=== PATIENT | female | born 2005 | race Caucasian/White ===

== ENCOUNTER 2023-10-08 10:46 | Emergency (ER) | payer OTHER, SELFPAY ==
[2023-10-08 10:51] VITALS: BP 105/87; PULSE 102; RESP 16; TEMP 36.6; O2SAT 100
[2023-10-08 11:27] VITALS: BP 138/79; PULSE 93; RESP 18; O2SAT 100
--- NOTE | 2023-10-08 11:33 | ED.GENADULT ---
HPI - General Adult General Chief complaint: GI Bleed Stated complaint: RECTAL BLEEDING Time Seen by Provider: 10/08/23 11:21 History of Present Illness HPI narrative: 18-year-old female presenting to the emergency department for evaluation rectal bleeding. Patient states that she did have rectal insertion during sexual intercourse approximately 4 days ago. Patient states since then she does have sharp pain in her anus and does have some blood that is past when she has a hard bowel movement. Patient denies any current abdominal pain. Patient denies any prior history GI bleed. Review of Systems Review of Systems: All systems reviewed & are unremarkable except as noted in HPI and below Exam Narrative: APPEARANCE: Well appearing, no pain, no distress, well-nourished. HEAD: normocephalic, atraumatic. EYES: PERRLA/EOMI, conjunctivae clear. NOSE: Normal no drainage EARS:TMS clear with good light reflex. THROAT: Pharynx clear, no exudate. NECK: Supple. No adenopathy, no masses. RESPIRATORY: Airway patent, respirations nonlabored. Clear to auscultation bilaterally, no rales, rhonchi, wheezing. CARDIOVASCULAR: Regular rate and rhythm without murmurs rubs or gallops. ABDOMINAL: Soft, nontender, nondistended, normal bowel sounds Rectal exam: MUSCULOSKELETAL: Moves all extremities. Strength/ROM intact, No edema, No calf tenderness. NEURO: Alert. Cranial nerves II through XII intact. Good gait. Good coordination SKIN: Warm, dry. Normal Color Course Course Emergency Course: Patient is being treated as an anal fissure and patient was encouraged close follow-up Vital Signs Vital signs: Vital Signs Temperature 97.8 F 10/08/23 10:51 Pulse Rate 102 H 10/08/23 10:51 Respiratory Rate 16 10/08/23 10:51 Blood Pressure 105/87 10/08/23 10:51 Pulse Oximetry 100 10/08/23 10:51 Oxygen Delivery Room Air 10/08/23 10:51 Temperature 97.8 F 10/08/23 10:51 Pulse Rate 82 10/08/23 12:23 Respiratory Rate 17 10/08/23 12:23 Blood Pressure 132/74 10/08/23 12:23 Pulse Oximetry 100 10/08/23 12:23 Oxygen Delivery Room Air 10/08/23 10:51 Medical Decision Making MDM Narrative Medical decision making narrative: 18-year-old female presented emergency department for evaluation for rectal pain and rectal bleeding after a Rectal insertion. Patient is afebrile with no leukocytosis and a stable hemoglobin. No significant abnormalities on the patient's CMP. Patient's exam is consistent with an anal fissure. Patient was advised to take a stool softener and to have rectal rest. Patient was encouraged close follow-up with her primary care physician Differential Diagnosis Differential Diagnosis: Internal hemorrhoid, external hemorrhoid, anal fissure, diverticulitis, colitis Vital Signs Vital Signs: Vital Signs Temperature 97.8 F 10/08/23 10:51 Pulse Rate 102 H 10/08/23 10:51 Respiratory Rate 16 10/08/23 10:51 Blood Pressure 105/87 10/08/23 10:51 Pulse Oximetry 100 10/08/23 10:51 Oxygen Delivery Room Air 10/08/23 10:51 Temperature 97.8 F 10/08/23 10:51 Pulse Rate 82 10/08/23 12:23 Respiratory Rate 17 10/08/23 12:23 Blood Pressure 132/74 10/08/23 12:23 Pulse Oximetry 100 10/08/23 12:23 Oxygen Delivery Room Air 10/08/23 10:51 Lab Data Lab results reviewed: Yes I reviewed the patient's lab results. 10/08/23 11:40 10/08/23 11:40 Labs: Lab Results 10/08/23 Range/Units 11:40 WBC 6.5 (4.5-10.0) K/mm3 RBC 4.52 (4.2-5.4) M/mm3 Hgb 13.5 (12.0-15.0) g/dL Hct 40.7 (37.0-47.0) % MCV 90.0 (80-100) fl MCH 29.9 (26-34) pg MCHC 33.2 (32-36) g/dl RDW 12.3 (11.5-14.5) % Plt Count 236 (150-375) k/mm3 MPV 9.6 (7.4-10.4) fl Immature Gran % (Auto) 0.2 (0-0.5) % Neut % (Auto) 64.0 (45.5-73.1) % Lymph % (Auto) 27.8 (18.3-44.2) % [place] % (Auto) 6.5 (2.6-8.5) % Eos % (Auto) 0.9 (0-4.4) % Baso % (Auto) 0.
[2023-10-08 12:00] LABS: Basophils Percent Auto 0.6 % (0.2-1.2); Eosinophils Absolute Auto 0.1 K/mm3 (0-0.3); Eosinophils Percent Auto 0.9 % (0-4.4); Hematocrit 40.7 % (37.0-47.0); Hemoglobin 13.5 g/dL (12.0-15.0); Immature Granulocyte Absolute 0.01 K/mm3 (0.00-0.031); Immature Granulocyte Percent A 0.2 % (0-0.5); Lymphocytes Absolute Auto 1.81 K/mm3 (0.9-3.2); Lymphocytes Percent Auto 27.8 % (18.3-44.2); Mean Corpuscular HGB Conc 33.2 g/dl (32-36); Mean Corpuscular Hemoglobin 29.9 pg (26-34); Mean Platelet Volume 9.6 fl (7.4-10.4); Monocytes Absolute Auto 0.4 K/mm3 (0.1-0.6); Monocytes Percent Auto 6.5 % (2.6-8.5); Neutrophils Absolute Auto 4.2 K/mm3 (1.3-6.7); Platelet Count Result 236 k/mm3 (150-375); Red Blood Count 4.52 M/mm3 (4.2-5.4); Red Cell Distribution Width 12.3 % (11.5-14.5); White Blood Count 6.5 K/mm3 (4.5-10.0)
[2023-10-08 12:09] LABS: Alanine Aminotransferase 18 U/L (6-35); Alkaline Phosphatase 55 U/L (38-126); Anion Gap 8 mmol/L (4-12); Aspartate Amino Transferase 24 U/L (14-36); Bilirubin,Total 0.7 mg/dL (0.2-1.3); Blood Urea Nitrogen 21 mg/dL (7-17); Calcium 9.8 mg/dL (8.4-10.2); Carbon Dioxide 25 mmol/L (22-30); Chloride 108 mmol/L (98-107); Estimated CRCL calculation 138 ml/min; Estimated Glomerular Filt Rate > 60; Glucose 115 mg/dL (65-110); Potassium 3.7 mmol/L (3.4-5.0); Sodium 141 mmol/L (137-145)
[2023-10-08 12:11] LABS: Prothrombin Time 13.4 Seconds (11.1-14.7)
[2023-10-08 12:12] LABS: Partial Thromboplastin Time 27.5 Seconds (22.3-36.8)
[2023-10-08 12:23] VITALS: BP 132/74; PULSE 82; RESP 17; O2SAT 100
[2023-10-08 12:51] LABS: Lactic Acid Reflex 0.9 mmol/L (0.7-2.0)
== END 2023-10-08 12:25 | disposition home or self-care (01) ==
PROVIDERS: Emergency Provider Emergency Medicine
DX: K60.2 Anal fissure, unspecified (principal)
CPT/HCPCS: 36415; 80053; 83605; 85025; 85610; 85730; 99283

== ENCOUNTER 2023-12-30 22:00 | Emergency (ER) | payer OTHER, SELFPAY ==
[2023-12-30 22:04] VITALS: BP 120/94; PULSE 88; RESP 17; TEMP 36.5; O2SAT 100
[2023-12-30 22:14] LABS: Basophils Absolute Auto 0.1 K/mm3 (0.0-0.1); Basophils Percent Auto 0.5 % (0.2-1.2); Eosinophils Absolute Auto 0.1 K/mm3 (0-0.3); Eosinophils Percent Auto 0.9 % (0-4.4); Hematocrit 38.1 % (37.0-47.0); Hemoglobin 12.5 g/dL (12.0-15.0); Immature Granulocyte Absolute 0.03 K/mm3 (0.00-0.031); Immature Granulocyte Percent A 0.3 % (0-0.5); Lymphocytes Absolute Auto 3.14 K/mm3 (0.9-3.2); Lymphocytes Percent Auto 28.3 % (18.3-44.2); Mean Corpuscular HGB Conc 32.8 g/dl (32-36); Mean Corpuscular Hemoglobin 29.8 pg (26-34); Mean Corpuscular Volume 90.7 fl (80-100); Mean Platelet Volume 9.6 fl (7.4-10.4); Monocytes Absolute Auto 0.7 K/mm3 (0.1-0.6); Monocytes Percent Auto 6.2 % (2.6-8.5); Neutrophils Absolute Auto 7.1 K/mm3 (1.3-6.7); Neutrophils Percent Auto 63.8 % (45.5-73.1); Platelet Count Result 236 k/mm3 (150-375); Red Cell Distribution Width 12.9 % (11.5-14.5); White Blood Count 11.1 K/mm3 (4.5-10.0)
[2023-12-30 22:18] LABS: BEDSIDEPREGUCG Negative (Negative)
[2023-12-30 22:24] LABS: Add Urine Microscopic? YES; Appearance Urine Clear (Clear); Bacteria Urine None Seen /hpf; Bilirubin Urine Negative (Negative); Blood Urine Negative (Negative); Color Urine Yellow (Yellow); Glucose Urine UA Negative (Negative); Ketones Urine Trace mg/dL (Negative); Leukocyte Esterase Ur Trace LEU/UL (Negative); Nitrate Urine Negative (Negative); Non Pathogenic Casts 0-2; Protein Urine Negative (Negative); RBC Urine 0-2 /hpf (0-2); Specific Grav Ur 1.027 (1.001-1.035); Squamous Epithelial Cell Urine Moderate /hpf (Few)
[2023-12-30 22:25] LABS: Alanine Aminotransferase 21 U/L (6-35); Albumin Level 4.5 g/dL (3.5-5.1); Alkaline Phosphatase 51 U/L (38-126); Anion Gap 10 mmol/L (4-12); Aspartate Amino Transferase 23 U/L (14-36); Bilirubin,Total 0.5 mg/dL (0.2-1.3); Blood Urea Nitrogen 18 mg/dL (7-17); Calcium 9.3 mg/dL (8.4-10.2); Carbon Dioxide 24 mmol/L (22-30); Chloride 104 mmol/L (98-107); Estimated CRCL calculation 135 ml/min; Estimated Glomerular Filt Rate > 60; Glucose 107 mg/dL (65-110); Lipase 47 U/L (23-300); Potassium 3.9 mmol/L (3.4-5.0); Sodium 138 mmol/L (137-145)
--- NOTE | 2023-12-30 23:02 | ED.ABDPAIN ---
HPI - Abdominal Pain General Chief Complaint: Abdominal Pain Stated Complaint: abd pain Time Seen by Provider: 12/30/23 22:11 History of Present Illness HPI narrative: patient presents with 3 days of GI symptoms, starting with diarrhea, then having some periumbilical discomfort, and nausea. Only thing she had before this has started was spicy noodles. Related Data Allergies Allergy/AdvReac Type Severity Reaction Status Date / Time No Known Allergies Allergy Verified 12/30/23 23:02 Review of Systems Review of Systems: All systems reviewed & are unremarkable except as noted in HPI and below Exam Narrative: EXAMINATION OF ORGAN SYSTEMS/BODY AREAS: Constitutional: Vital signs per nursing GENERAL:[No acute distress, non-toxic appearing.] HEAD: Normal with no signs of head trauma. EYES: EOMI, conjunctiva normal ENT: Hearing grossly intact LUNGS: Nonlabored breathing. HEART: [Regular rate and rhythm] ABD: [Soft], no significant [tenderness to palpation] other than some very mild discomfort to the periumbilical abdomen, no RLQ tenderness at all EXT: Normal range of motion SKIN: [No rashes or lesions.] NEURO: [Alert and oriented x 3. No gross focal sensory or strength deficits.] PSYCH: Normal affect Course Vital Signs Vital signs: Vital Signs Temperature 97.7 F 12/30/23 22:04 Pulse Rate 88 12/30/23 22:04 Respiratory Rate 17 12/30/23 22:04 Blood Pressure 120/94 H 12/30/23 22:04 Pulse Oximetry 100 12/30/23 22:04 Oxygen Delivery Room Air 12/30/23 22:04 Temperature 98.1 F 12/31/23 00:52 Pulse Rate 82 12/31/23 00:52 Respiratory Rate 15 12/31/23 00:52 Blood Pressure 110/59 L 12/31/23 00:52 Pulse Oximetry 97 12/31/23 00:52 Oxygen Delivery Room Air 12/30/23 22:04 MDM - Abdominal Pain MDM Narrative Medical decision making narrative: Electronic medical record was reviewed. Patient presented to the ED with complaint of [abdominal pain and vomiting]. Vitals [were within acceptable limits]. Physical exam revealed [ soft abdomen with very minimal tenderness to palpation in periumbilical abdomen]. Based on the patient's history and physical exam, my differential includes but is not limited to [gastritis, gastroenteritis, cholecystitis, pancreatitis, appendicitis]. [IV access was established by nursing staff. Patient was given zofran, Protonix, IV fluids]. CBC, BMP, lipase, LFTs, bilirubin and alk phos were obtained. Labs were pertinent for very minimally elevated WBCs. On reevaluation, the patient states that they are feeling better. There were no witnessed episodes of vomiting in the emergency department. They are not complaining of any new abdominal pain. Repeat examination did not show any significant guarding or rebound. No new tenderness. At this time I do not feel there is any further emergent treatment to be provided. The patient was given strict return precautions, if they are to develop any worsening abdominal pain, vomiting, or blood in the vomit they are to return to the emergency department immediately. Patient verbally acknowledges understanding these directions. [The patient was informed of the above diagnostic test findings.] No further workup is necessary at this time. They will be discharged home [with prescriptions]. They were advised to follow-up with [their PCP] in 2 days. The patient feels that this is appropriate medical decision making and verbalizes an understanding of the discharge instructions. Lab Data 12/30/23 22:09 12/30/23 22:09 Labs: Lab Results 12/30/23 12/30/23 12/30/23 Range/Units 22:09 22:10 22:16 WBC 11.1 H (4.5-10.0) K/mm3 RBC 4.20 (4.2-5.4) M/mm3 Hgb 12.5 (12.0-15.0) g/dL Hct 38.1 (37.0-47.0) % MCV 90.7 (80-100) fl MCH 29.8 (26-34) pg MCHC 32.8 (32-36) g/dl RDW 12.9 (11.5-14.5) % Plt Count 236 (150-375) k/mm3 MPV 9.6 (7.4-10.4) fl Immature Gran % (Auto) 0.
[2023-12-30] MEDS: ONDANSETRON INJ 4 MG/2 ML VIAL IV PUSH (23:03)
[2023-12-30] MEDS: LACTATED RINGERS 1,000 ML 999 ML IV CONT (23:03)
[2023-12-30] MEDS: PANTOPRAZOLE SODIUM IV 40 MG VIAL IV PUSH (23:03)
[2023-12-30] MEDS: Please add drug allergy info to patient profile. 1 EACH XX (23:03)
[2023-12-31] MEDS: KETOROLAC 30 MG/ML VIAL (*BKC) 15 MG IM (00:07)
[2023-12-31 00:52] VITALS: BP 110/59; PULSE 82; RESP 15; TEMP 36.7; O2SAT 97
== END 2023-12-31 00:54 | disposition home or self-care (01) ==
PROVIDERS: Emergency Provider Emergency Medicine
DX: R10.33 Periumbilical pain (principal); R11.2 Nausea with vomiting, unspecified
CPT/HCPCS: 36415; 80053; 81001; 81025; 83690; 85025; 87086; 96361; 96372; 96374; 96375; 99284; J1885; J2405; J2470; J7120

== ENCOUNTER 2024-07-13 10:59 | Outpatient (CLI) | payer OTHER, SELFPAY ==
--- NOTE | ~2024-07-13 | US_ITS ---
EXAMINATION: US OB <=14 wk fetus w TV DATE: 07/13/2024 11:58 INDICATION: Amenorrhea TECHNIQUE: Real-time pelvic ultrasound utilizing transabdominal probe was performed. The alan gimenez radiologist was not present for the study. COMPARISON: None. FINDINGS: The uterus measures 10.4 x 6.5 x 7.8 cm. There is an intrauterine gestational sac. A yolk sac and fe diego pole are identified. The crown rump length measures 4.0 cm, which correlates with an estimated ge stational age of 10 weeks and 6 days. heart motion is identified measuring 152 beats per minute (bpm) by M-mode Doppler. The right ovary measures 3.6 x 2.9 x 1.4 cm. Vascular flow with arterial and venous waveforms identif ied in the right ovary on color Doppler. The left ovary is not visualized. There is no free fluid in the pelvis. IMPRESSION: 1. Single living fetus with heart rate is 152 bpm. 2. Gestational age by ultrasound of 10 weeks 6 day(s) +/- 7 day(s) with ultrasound estimated date of delivery (LAURIE) of 02/02/2025. Reviewed, dictated and finalized at location B. IMPRESSION: 1. Single living fetus with heart rate is 152 bpm. 2. Gestational age by ultrasound of 10 weeks 6 day(s) +/- 7 day(s) with ultras ound estimated date of delivery (LAURIE) of 02/02/2025.
--- OUTSIDE RECORDS SUMMARY | 2024-07-13 12:03 | XMS_ITS | Referral Summary ---
Author Organization [facility] Address [address] [place] [address] Care Team Providers Care Subway Train Operator Name Role Phone Nel Field MD Unavailable [phone] Josee Henson PT Unavailable Unavailab Mila Shelton MANAGER OF CORPORATE COMMUNICATIONS Unavailable [phone] Isatu Tariq PT Unavailable Unavailable Anita Nam CHANGE MANAGEMENT MANAGER Unavailable Unavailable Chris Tadeo Unavailable Unavailable Nel Field MD Primary Care Provider [phone] Allergies Active Allergy Reactions Criticality Noted Date Comments Chlorhexidine Rash Medium 07/09/2021 Mild skin irritation after CHG scrub preop Medications cetirizine (ZyrTEC) 1 mg/mL syrup Take 10 mg by mouth daily Active SUMAtriptan (IMITREX) 50 mg tablet Take 1 tablet by mouth daily Active albuterol HFA (PROVENTIL HFA,VENTOLIN HFA,PROAIR HFA) 90 mcg/actuation inhaler Inhale 2 puffs every 4 (four) hours as needed for wheezing or shortness of breath Active gabapentin (NEURONTIN) 100 mg capsule TAKE ONE CAPSULE BY MOUTH AT BEDTIME FOR 5 DAYS, THEN TAKE TWO CAPSULES BY MOUTH EVERY NIGHT AT BEDTIME 60 capsule 3 0 Active Additional Information Patient not taking.Reported on 06/14/2022 fluticasone propionate (FLONASE) 50 mcg/actuation nasal spray Administer 2 sprays into each nostril daily 1 Active ibuprofen (ADVIL,MOTRIN) 600 mg tablet Take 1 tablet (600 mg total) by mouth every 6 (six) hours as needed for pain 30 tablet 2 Active Additional Information Patient not taking.Reported on 08/27/2021 acetaminophen (TYLENOL) 325 mg tabletIndicatio ns:Pain Take 2 tablets (650 mg total) by mouth every 6 (six) hours as needed for pain 60 tablet 2 Active Additional Information Patient not taking.Reported on 08/27/2021 docusate sodium (COLACE) 100 mg capsuleIndicati ons:constipatio n Take 1 capsule (100 mg total) by mouth 2 (two) times a day 28 capsule 2 Active Additional Information Patient not taking.Reported on 08/27/2021 senna (SENOKOT) 8.6 mg tablet Take 1 tablet by mouth nightly 14 tablet 2 Active Additional Information Patient not taking.Reported on 08/27/2021 cyclobenzaprine (FLEXERIL) 5 mg tablet Take 1 tablet (5 mg total) by mouth every 8 (eight) hours as needed for muscle spasms 21 tablet 2 Active Additional Information Patient not taking.Reported on 08/27/2021 oxyCODONE (ROXICODONE) 5 mg immediate release tabletIndicatio ns:Pain Take 1 tablet (5 mg total) by mouth every 4 (four) hours as needed for pain 18 tablet 2 Active Additional Information Patient not taking.Reported on 08/27/2021 cephalexin (KEFLEX) 500 mg capsule 1000 mg am (2 cap), 500 mg midday (1 cap), 500 mg pm (1 cap) 10 days supply 40 capsule 2 Active Additional Information Patient not taking.Reported on 08/27/2021 Aurovela Fe 1-20, 28, 1 mg-20 mcg (21)/75 mg (7) per tablet Take 1 tablet by mouth daily 2 Active Active Problems Problem Noted Date Diagnosed Date Atopic dermatitis 11/12/2020 Depressive disorder 11/12/2020 Obesity 11/12/2020 Vitamin D deficiency 11/12/2020 Bulging of intervertebral disc between L4 and L5 12/26/2018 Low back pain without sciatica 05/24/2018 Perennial allergic rhinitis 10/14/2017 Pain of right scapula 08/12/2017 Patellofemoral pain syndrome 04/20/2017 Mild intermittent asthma 12/15/2016 Resolved Problems Problem Noted Date Diagnosed Date Resolved Date Contusion of right wrist 11/30/2012 Pain of hand 11/30/2012 07/01/2021 Immunizations Immunization Administration Dates Next Due DTaP 01/22/2008, 5,03/27/2004,02/06,2003 H1N1 All Forms 04/08/2009 HPV, Quadrivalent 10/15/2014 HPV9 08/11/2015,01/23/2015 Hep A, Ped Unspecified 11/02/2005 Hep A, Pediatric 12/25/2009,11/03/2006, 6 Hep B / HiB 03/27/2004 Hep B, Adolescent or Pediatric 2003 Hep B, Unspecified 03/27/2004,2003, 004 HiB 10/21/2004, 4,02/07/2004,12/12 IPV 01/22/2008, 5,02/07/2004,12/12 Influenza, Quadrivalent, Spl it, Preservative Free, Intramuscular 03/19/2021,04/01/2020,01/24/2019,01/27,02/17/2017,01/06/2016,01/23/2015 Influenza, Split 01/22/2008, 6,04/24/2004,03/27 Influenza, Unspecified 03/29/2013,03/02/2011, MMR 01/22/2008,10/21/2004 Meningococcal B, OMV (Bexsero) 09/30/2020,2019 Meningococcal Conjugate (Menveo) 10/15/2014 Meningococcal MCV4P (Menactra) 04/01/2020 Pneumococcal Conjugate 7-Valent 10/22/19 05,03/27/2004,02/07/2004,12/12 Tdap 10/22/2013 Varicella 01/22/2008,10/21/2004 Social History Tobacco Use Types Packs/Day Years Used Date Smoking Tobacco: Never Smokeless Tobacco: Never Alcohol Use Standard Drinks/Week Comments Never 0 (1 standard drink = 0.6 oz pur e alcohol) AUDIT-C Answer Date Recorded Frequency of Alcohol Consumption Never 01/31/2019 Average Number of Drinks Not on file 019 Frequency of Binge Drinking Not on file 01/16 Comments No Sex and Gender Information Value Date Recorded Sex Assigned at Not on file Legal Sex Female 2:47 AM FRUIT AND VEGETABLE CLASSER Gender Identity Not on file Sexual Orientation Not on file Last Filed Vital Signs Vital Sign Reading Time Taken Comments Blood Pressure 103/56 07/10/2021 8:41 AM CDT Pulse 64 07/10/2021 8:41 AM CDT Temperature 36.4 C (97.5 F) 07/10/2021 8:41 AM CDT Respiratory Rate 20 07/10/2021 8:41 AM CDT Oxygen Saturation 97% 07/10/2021 8:41 AM CDT Inhaled Oxygen Concentration - - Weight 94.4 kg (208 lb 3.2 oz) 06/14/2022 2:06 P M FRUIT AND VEGETABLE CLASSER Height 170.2 cm (5' 7 ) 06/14/2022 2:06 PM FRUIT AND VEGETABLE CLASSER Body Mass Index 32.61 06/14/2022 2:06 PM FRUIT AND VEGETABLE CLASSER Plan of Treatment Not on file Insurance [employer]ULT[employer] CARE OTHER IDPA [facility] CARE OTHER IDPA M[employer] CARE OTHER [employer] CARE OTHER IDPA Advance Directives For more information, please contact: [phone] * Full Code (Latest Code Status on File) Date Activated Date Inactivated Comments 07/09/2021 4:20 PM 07/10/2021 5:06 PM Care Teams Subway Train Operator Relationship Specialty Start Date End Date Nel Field MD [address] [place] [address] PCP - General Pediatrics 05/24/18 Nel Field MD [address] [place] [address] Pediatrics 03/05/17 Josee Henson, PT Physical Therapist Physical Therapy 03/24/17 Mila Olivera, MALLORY [address] [address] Nurse Practitioner Orthopedic Surgery 04/22/17 Isatu Tariq PT Physical Therapist Physical Therapy 05/06/17 Anita Nam, YUMIKO Cardroom Drawing Runner Physical Therapy 05/19/17 Chris Tadeo Cardroom Drawing Runner Physical Therapy 05/31/17
--- OUTSIDE RECORDS SUMMARY | 2024-07-13 12:03 | XMS_ITS | Clinical Summary ---
Author Organization [facility] Address [address] [place] [address] Care Team Providers Care Pediatric Medical Assistant Name Role Phone Nel Field MD Unavailable [phone] Josee Henson PT Unavailable Unavailab Mila Shelton EARLY [employer] PSYCHOLOGIST Unavailable [phone] Isatu Tariq PT Unavailable Unavailable Anita Nam ARMHOLE PRESSER Unavailable Unavailable Chris Tadeo Unavailable Unavailable Nel Field MD Primary Care Provider Allergies Active Allergy Reactions Criticality Noted Date [...] 7-Valent 10/22/19 05,03/27/2004,02/07/2004,12/12 Tdap 10/22/2013 Varicella 01/22/2008,10/21/2004 Surgical History Surgery Date Site/Laterality Comments FL UPPER GI AIR CONTRAST W KUB 03/05/2019 Bilateral FL UPPER GI AIR CONTRAST W KUB 06/18/2019 Bilateral TONSILLECTOMY AND ADENOIDECTOMY 04/18/2008 - 04/17/2009 Medical History Medical History Date Comments Pain in right knee Bilateral kne e pain - (Added by TW Conv) Asthma Family History Medical History Relation Name Comments No Known Problems Father Arthritis Mother Hypertension Mother Relation Name Status Comments Father Alive Mother Alive Social History Tobacco Use Types Packs/Day Years [...] on file Legal Sex Female 2:47 AM LIFE SKILLS SPECIALIST Gender Identity Not on file Sexual Orientation Not on file Obstetrics History Last Filed Vital Signs Vital Sign Reading Time Taken Comments Blood Pressure 103/56 07/10/2021 8:41 AM CDT Pulse 64 07/10/2021 8:41 AM CDT Temperature 36.4 C (97.5 F) 07/10/2021 8:41 AM CDT Respiratory Rate 20 07/10/2021 8:41 AM CDT Oxygen Saturation 97% 07/10/2021 8:41 AM CDT Inhaled Oxygen Concentration - - Weight 94.4 kg (208 lb 3.2 oz) 06/14/2022 2:06 P M LIFE SKILLS SPECIALIST Height 170.2 cm (5' 7 ) 06/14/2022 2:06 PM LIFE SKILLS SPECIALIST Body Mass Index 32.61 06/14/2022 2:06 PM LIFE SKILLS SPECIALIST Plan of Treatment Health Maintenance Due Date Last Done Comments Depression Screening 2003 Hepatitis C Screening 2003 Pneumococcal vaccine <65 (1 of 1 - PPSV23) 09/25/2009 10/21/2004, 03/27/2004, 02/07/2004, Additional history exists Regular Well Visit/Exam 18-64 09/25/2021 DTaP/Tdap/Td Vaccine (7 - Td or Tdap) 10/23/2023 10/22/2013, 01/22/2008, 01/26/2005, Additional history exists Covid-19 Vaccine (2023-2 5 season) 2023 01/04/2021, 12/11/2020 Influenza Vaccine (#1) 2023 , 04/01/2020, 01/24/2019, Additional history exists Hepatitis B Screening Completed 03/27/2004 , 03/27/2004, 2003, Additional history exists Varicella Vaccines Completed 01/22/2008, 10/21/2004 HPV Vaccines Completed 08/11/2015, 11/2014, 10/15/2014 Meningococcal Vaccine Completed 04/01/2020, 015 Meningococcal B Vaccine Completed 09/30/2020, 04/01 Insurance MULTIPLAN CARE OTHER [facility] [place] [address] [place] [address] CARE OTHER IDPA [facility] C[facility] OTHER A[employer] CARE OTHER IDPA Advance Directives For more information, please contact: [phone] * Full Code (Latest Code Status on File) Date Activated Date Inactivated Comments 07/09/2021 4:20 PM 07/10/2021 5:06 PM Care Teams Pediatric Medical Assistant Relationship Specialty Start Date End Date Nel Field MD [address] [place] [address] PCP - General Pediatrics 05/24/18 Nel Field MD [address] [place] [address] Pediatrics 03/05/17 Josee Henson, PT Physical Therapist Physical Therapy 03/24/17 Mila Olivera, EARLY INTERVENTION SCHOOL PSYCHOLOGIST [address] [address] Nurse Practitioner Orthopedic Surgery 04/22/17 Isatu Tariq, PT Physical Therapist Physical Therapy 05/06/17 Anita Nam, ARMHOLE PRESSER Washtub Worker Physical Therapy 05/19/17 Chris Tadeo Washtub Worker Physical Therapy 05/31/17
--- OUTSIDE RECORDS SUMMARY | 2024-07-13 12:05 | XMS_ITS | Clinical Summary ---
Author Organization [facility] Address [address] [place] [address] Care Team Providers Care Exhaust Emissions Automotive Technician Name Role Phone Lisa Figueroa Primary Care Provider [phone] Allergies Active Allergy Reactions Criticality Noted Date Comments Chlorhexidine Rash Medium 07/09/2021 Mild skin irritation after CHG scrub preop Bupropion Anxiety Low 04/02/2024 Increased anxiety and thoughts of Medications albuterol sulfate HFA 108 (90 Base) MCG/ACT inhaler Inhale 2 puffs into the lungs every 6 (six) hours as needed. As needed Active SUMAtriptan (IMITREX) 50 MG tablet Take 1 tablet (50 mg total) by mouth daily as needed for Migraine. Active sertraline (ZOLOFT) 25 MG tablet Take 1 tablet (25 mg total) by mouth nightly. Active Active Problems Problem Noted Date Diagnosed Date Seasonal allergic rhinitis, unspecified trigger 02/06/2024 Overview (03/05/2024): Patient reports she is taking cetirizine daily as needed. Assessment & Plan (03/05/2024 10:18 AM LEAKAGE TESTER): She is counseled that she may benefit from using Flonase/fluticasone nasal spray 1 spray in each nostril daily. She is counseled how to use this nasal spray medication appropriately. Daytime somnolence 02/06/2024 Overview (03/05/2024): Patient completed overnight polysomnogram with WatchPAT. Assessment & Plan (03/05/2024 10:25 AM LEAKAGE TESTER): Sleep study results have not resulted. Will contact patient when they result. 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 Currently on sertraline 25mg nightly. Has been increased to sertraline 50mg nightly however patient reports she hasn't picked up new prescription yet. Assessment & Plan (04/02/2024 5:39 PM LEAKAGE TESTER): Counseled patient that I am more than happy to take over prescribing this medication for her if she had any point does not want to use this dimitry. Chronic bilateral low back pain without sciatica 01/16/2024 Overview (04/02/2024): She reports she has been going to physical therapy. She reports some improvement since starting physical therapy with her back pain especially with cupping on her back. Assessment & Plan (04/02/2024 5:41 PM LEAKAGE TESTER): Continue physical therapy at this time. Assessment & Plan (03/05/2024 10:20 AM LEAKAGE TESTER): New referral is placed to patient's current physical therapy location [facility]. Class 1 obesity without seri ous comorbidity with body mass index (BMI) of 34.0 to 34.9 in adult, unspecified obesity type 01/16/2024 Assessment & Plan (03/05/2024 10:27 AM LEAKAGE TESTER): Discussed with patient the importance of maintaining a healthy weight and we can discuss medication options further at next appointment if she is interested. Migraine without aura and wi thout status migrainosus, not intractable 01/16/2024 Overview (04/02/2024): She reports she takes her sumatriptan as needed. She reports last time she took a dose approximately one month or two. She denies having to take it more frequently than previously. Assessment & Plan (03/05/2024 10:17 AM LEAKAGE TESTER): Continue sumatriptan as needed. If migraine headaches become more frequent or more intense, patient is instructed to notify myself so we can adjust medication therapy. Marijuana use 01/16/2024 Snoring 01/16/2024 Overview (03/05/2024): Patient completed overnight polysomnogram with WatchPAT. Assessment & Plan (04/02/2024 5:41 PM LEAKAGE TESTER): Snoring was noted on WatchPAT sleep study however no evidence of obstructive sleep apnea was appreciated. Assessment & Plan (03/05/2024 10:23 AM LEAKAGE TESTER): Sleep study results have not resulted. Will contact patient when they result. Vitamin D insufficiency 01/16/2024 Overview (04/02/2024): Component Ref Range & Units 01/16/24 1034 VITAMIN D 25 HYDROXY TOTAL S/P/B 30 - 100 NG/ML 20.0 Low Assessment & Plan (04/02/2024 5:40 PM LEAKAGE TESTER): Counseled patient to take vitamin with at least vitamin D3 1000 to 2000 IU daily Resolved Problems Problem Noted Date Diagnosed Date Resolved Date Need for immunization against influenza 03/05/2024 04/02/2024 Overview (03/05/2024): Patient is due for influenza vaccine. She reports she has not had influenza vaccine in a few years. She denies previous adverse reaction to influenza vaccine. Need for diphtheria-tetanus- pertussis (Tdap) vaccine 03/05/2024 04/02/2024 Overview (03/05/2024): Patient is due for Tdap booster. She denies any previous adverse reaction to vaccine. Atopic dermatitis 11/12/2020 04/02/2024 Bulging of intervertebral di sc between L4 and L5 12/26/2018 04/02/2024 Pain of right scapula 08/12/20172023 Patellofemoral pain syndrome 04/20/2017 04/02/2024 Encounters Date Type Department Care Team Description 05/22/2024 Scan [facility] INFO SRVCS Scanned, [facility] 04/16/2024 Scan [facility] HE[facility] INFO SRVCS Scanned, [facility] from Last 3 Months Immunizations Name Administration Dates Next Due Dtap (Acel-Immune) 01/22/2008, 5,03/27/2004,01/17,2003 Fluzone (IIV3, Trivalent, 0. 5 ML Prefilled Syringe) 03/05/2024 H1N1 2009 Influenza Vaccine 04/08/2009 HPV GARDASIL 9-VALENT 08/11/2015,01/23/2015 HPV4 (Gardasil) 10/15/2014 Hepatitis A (Generic) 11/02/2005,11/02/2005 Hepatitis A (Havrix 720 [address].U) 12/25/2009, 007,11/02/2005 Hepatitis B 03/27/2004,2003 Hepatitis B Pediatric 2003 Hib (Generic) 10/21/2004, 4,02/07/2004,11/17 Hib-Hepatitis B (Comvax) 03/27/2004 Influenza (Generic) 03/29/2013, 1,04/08/2009,09/2007,04/04/2007,02/17/2006,04/24/19 05,03/27/2004 Influenza Adult (Generic) 03/19/2021,,01/24/2019,01/16,02/17/2017,01/06/2016,01/24/20 15 MENINGOCOCCAL A C Y&W-135 oligosaccharide (MENVEO) 10/15/2014 MMR (MMRII) 01/22/2008,10/21/2004 Meningcoccal Group B (Bexser o)(aka Meningitis) 09/30/2020,04/01/2020 Meningococcal (Menactra) 04/01/2020 PFIZER COVID-19 (ORIGINAL FO RMULATION, PURPLE CAP) mRNA, LNP-S, PF, 30 MCG/0.3 ML DOSE 01/04/2021,12/11/2020 Pneumococcal (Prevnar 7) 10/21/2004,03/18,02/07/2004,11/17 Polio IPV (Ipol) 01/22/2008, 5,02/07/2004,11/17 Tdap (Adacel) 03/05/2024 Tdap (Generic) 10/22/2013 Varicella (Varivax) 01/22/2008,10/21/2004 Family History Medical History Relation Comments Prediabetes Father No Known Problems Maternal Grandfather Diabetes Maternal Grandmother Uses insuli n Liver Disease Maternal Grandmother Bipolar Mother Cancer Paternal Grandfather Skin No Known Problems Sister 2 years older Relation Status Comments Father Alive Maternal Grandfather Maternal Grandmother Alive Mother Alive Paternal Grandfather Alive Paternal Grandmother Alive Sister Alive Social History Tobacco Use Types Packs/Day Years Used Date Smoking Tobacco: Never Passive Smoke Exposure: Past Smokeless Tobacco: Never Tobacco Cessation:Counseling Given: Yes Alcohol Use Standard Drinks/Week Comments Yes 0 (1 standard drink = 0.6 oz pure alcohol) Socially- holidays - 3 shots at a time PHQ-2 Answer Date Recorded Patient Health Questionnaire-2 Score 2 01/16/2024 Comments No Sex and Gender Information Value Date Recorded Sex Assigned at Not on file Legal Sex Female 3:40 PM CDT Gender Identity Not on file Sexual Orientation Not on file Last Filed Vital Signs Vital Sign Reading Time Taken Comments Blood Pressure 112/71 04/02/2024 4:05 PM LEAKAGE TESTER Pulse 77 04/02/2024 4:05 PM LEAKAGE TESTER Temperature 36.8 C (98.2 F) 04/02/2024 4:05 PM LEAKAGE TESTER Respiratory Rate 16 04/02/2024 4:05 PM LEAKAGE TESTER Oxygen Saturation 96% 04/02/2024 4:05 PM LEAKAGE TESTER Inhaled Oxygen Concentration - - Weight 93.9 kg (207 lb) 04/02/2024 4:05 PM LEAKAGE TESTER Height 170.2 cm (5' 7 ) 04/02/2024 4:05 PM LEAKAGE TESTER Body Mass Index 32.42 04/02/2024 4:05 PM LEAKAGE TESTER Plan of Treatment Upcoming Encounters Date Type Department Care Team (Late st Contact Info) Description 10/01/2024 3:40 PM CDT Office Visit [facility] [place] [address] [place] [address] Lisa Figueroa, [address] [place] [address] Health Maintenance Due Date Last Done Comments Annual Physical 09/25/2006 Pneumococcal Vaccine: Pediatrics (0 to 5 Years) and At-Risk Patients (6 to 64 Years) (1 of 2 - PCV) 09/25/2009 10/21/2004, 03/27/2004, 02/07/2004, Additional history exists Chlamydia Screening Females ages 16-24 2019 Hepatitis C 09/25/2021 COVID-19 Vaccine ( season) 2023 01/04/2021, 12/11/2020 PHQ-2 (Physician [facility] [place]) 04/18/2024 01/16/2024 DTaP, Tdap and Td Vaccines (8 - Td or Tdap) 03/05/2034 03/05/2024, 10/22/2013, 01/22/2008, Additional history exists Hepatitis B Vaccines Completed 03/27/2004, 03/27/2004, 2003, Additional history exists HPV Vaccines Completed 08/11/2015, 11/2014, 10/15/2014 Meningococcal Vaccine Completed 04/01/2020, 015 Meningococcal B Vaccine Completed 09/30/2020, 04/01 Influenza Adult Completed 03/05/2024, 05/2020, 04/01/2020, Additional history exists RSV Immunizations Under 20 Months Aged Out No longer eligible based on patient's age to complete this topic Insurance [employer] Care Teams Exhaust Emissions Automotive Technician Relationship Specialty Start Date End Date Lisa Figueroa DO [address] [place], [place] [id number] PCP - General FAMILY PRACTICE 01/10/24
== END 2024-07-13 11:00 | disposition home or self-care (01) ==
PROVIDERS: Visit Provider Student in an Organized Health Care Education/Training Program
DX: N91.2 Amenorrhea, unspecified (principal); Z33.1 Pregnant state, incidental
CPT/HCPCS: 76801; 76817

== ENCOUNTER 2025-01-21 14:56 | Outpatient (CLI) | payer OTHER, SELFPAY ==
[2025-01-21] VITALS (8 sets, daily range): BP systolic 125–156; BP diastolic 60–86; PULSE 91–100
--- NOTE | ~2025-01-21 | US_ITS ---
EXAMINATION: US OB BPP wo non-stress DATE: 01/21/2025 17:24 INDICATION: arrhythmia. Blood pressure TECHNIQUE: Real-time pelvic ultrasound was performed. The interpreting radiologist was not present for the study. COMPARISON: None. FINDINGS: cardiac activity and movement are demonstrated. heart rate is 144 beats per minute (bpm). Biophysical profile performed by the technologist: breathing (30 sec sustained breathing in 30 minutes): 2 out of 2 movement (3 gross body movements in 30 minutes): 2 out of 2 tone (one episode of kkzcsay-oqxeugqmm-clyhqxs limb movement): 2 out of 2 Amniotic fluid pocket (2 cm): 2 out of 2 Total score: 8 out of 8 IMPRESSION: 1. Single living intrauterine with heart rate of [144 bpm. 2. Biophysical profile 8 out of 8. Reviewed, dictated and finalized at location Q.
[2025-01-21 15:29] LABS: Hematocrit 35.2 % (37.0-47.0); Hemoglobin 11.5 g/dL (12.0-15.0); Immature Granulocyte Percent A 1.1 % (0-0.5); Lymphocytes Absolute Auto 2.07 K/mm3 (0.9-3.2); Mean Corpuscular HGB Conc 32.7 g/dl (32-36); Mean Corpuscular Hemoglobin 26.4 pg (26-34); Mean Corpuscular Volume 80.7 fl (80-100); Nucleated Red Blood Cells Absolute Auto 0.000 K/mm3 (0.0-0.012); Nucleated Red Blood Cells Perc 0.0 % (0.0-0.2); Platelet Count Result 357 k/mm3 (150-375); Red Blood Count 4.36 M/mm3 (4.2-5.4); White Blood Count 15.2 K/mm3 (4.5-10.0)
[2025-01-21 15:41] LABS: Alanine Aminotransferase 39 U/L (6-35); Albumin Level 3.3 g/dL (3.5-5.1); Alkaline Phosphatase 170 U/L (38-126); Anion Gap 9 mmol/L (4-12); Aspartate Amino Transferase 36 U/L (14-36); Bilirubin,Total 0.2 mg/dL (0.2-1.3); Blood Urea Nitrogen 18 mg/dL (7-17); Calcium 9.3 mg/dL (8.4-10.2); Carbon Dioxide 19 mmol/L (22-30); Chloride 105 mmol/L (98-107); Estimated Glomerular Filt Rate > 60; Glucose 112 mg/dL (65-110); Potassium 4.0 mmol/L (3.4-5.0); Sodium 133 mmol/L (137-145); Total Protein 6.4 g/dL (6.3-8.2); Uric Acid 5.1 mg/dL (2.5-7.5)
--- OUTSIDE RECORDS SUMMARY | 2025-01-21 15:42 | XMS_ITS | Clinical Summary ---
Author Organization [facility] Address [address] [place] [address] Care Team Providers Care Faith Healer Name Role Phone Nel Field MD Unavailable [phone] Josee Henson PT Unavailable Unavailab Mila Shelton HEALTH COMMUNICATIONS SPECIALIST Unavailable [phone] Isatu Tariq PT Unavailable Unavailable Anita Nam PHP WEBSITE DEVELOPER Unavailable Unavailable Chris Tadeo Unavailable Unavailable Nel Field MD Primary Care Provider [phone] Allergies Active Allergy Reactions Criticality Noted Date [...] on file Legal Sex Female 2:47 AM ENTRY EXAMINER Gender Identity Not on file Sexual Orientation [...] lb 3.2 oz) 06/14/2022 2:06 P M ENTRY EXAMINER Height 170.2 cm (5' 7) 06/14/2022 2:06 PM ENTRY EXAMINER Body Mass Index 32.61 06/14/2022 2:06 PM ENTRY EXAMINER Plan of Treatment Health Maintenance Due Date Last Done Comments Cervical Cancer Screening 2003 Depression Screening 2003 Hepatitis C Screening 2003 Pneumococcal vaccine <65 (1 of 1 - PPSV23, PCV20, or PCV21) 09/25/2009 10/21/2004, 03/27/2004, 02/07/2004, Additional history exists Regular Well Visit/Exam 18-64 09/25/2021 DTaP/Tdap/Td Vaccine (7 - Td or Tdap) 10/23/2023 10/22/2013, 01/22/2008, 01/26/2005, Additional history exists Covid-19 Vaccine (3 - 5-2 6 season) 2024 01/04/2021, 12/11/2020 Influenza Vaccine (#1) 2024 , 04/01/2020, 01/24/2019, Additional history exists Hepatitis B Screening Completed 03/27/2004 , 03/27/2004, 2003, Additional history exists Varicella Vaccines Completed 01/22/2008, 10/21/2004 HPV Vaccines Completed 08/11/2015, 11/2014, 10/15/2014 Meningococcal Vaccine Completed 04/01/2020, 015 Meningococcal B Vaccine Completed 09/30/2020, 04/01 Insurance [facility] C[employer] OTHER IDLA [facility] CARE OTHER IDPA [facility] CARE OTHER [employer] CARE OTHER IDPA Advance Directives For more information, please contact: [phone] * Full Code (Latest Code Status on File) Date Activated Date Inactivated Comments 07/09/2021 4:20 PM 07/10/2021 5:06 PM Care Teams Faith Healer Relationship Specialty Start Date End Date Nel Field MD [address] [place], [place] [id number] PCP - General Pediatrics 05/24/18 Nel Field MD [address] [place] [address] Pediatrics 03/05/17 Josee Henson, PT Physical Therapist Physical Therapy 03/24/17 Mila Olivera, HEALTH COMMUNICATIONS SPECIALIST [address] [address] Nurse Practitioner Orthopedic Surgery 04/22/17 Isatu Tariq, PT Physical Therapist Physical Therapy 05/06/17 Anita Nam, PHP WEBSITE DEVELOPER Local Hazmat Driver Physical Therapy 05/19/17 Chris Tadeo Local Hazmat Driver Physical Therapy 05/31/17
--- OUTSIDE RECORDS SUMMARY | 2025-01-21 15:42 | XMS_ITS | Clinical Summary ---
Author Organization [facility] Address [address] [place] [address] Care Team Providers Care Program Evaluation Consultant Name Role Phone Montserrat Ibrahim MD Primary Care Provider + Allergies Active Allergy Reactions Criticality Noted Date [...] (25 mg total) by mouth nightly. Active metoclopramide (REGLAN) 5 MG tablet Take 1 tablet (5 mg total) by mouth daily. 07/27/2024 Active Active Problems Problem Noted Date Diagnosed Date Daytime somnolence 02/06/2024 Overview (03/05/2024): Patient completed overnight polysomnogram with WatchPAT. Assessment & Plan (03/05/2024 10:25 AM KNOTTING MACHINE OPERATOR): Sleep study results have not resulted. Will contact patient when they result. 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 Currently on sertraline 25mg nightly. Has been increased to sertraline 50mg nightly however patient reports she hasn't picked up new prescription yet. Assessment & Plan (04/02/2024 5:39 PM KNOTTING MACHINE OPERATOR): Counseled patient that I am more than happy to take over prescribing this medication for her if she had any point does not want to use this dimitry. Migraine without aura and wi thout status migrainosus, not intractable 01/16/2024 Overview (04/02/2024): She reports she takes her sumatriptan as needed. She reports last time she took a dose approximately one month or two. She denies having to take it more frequently than previously. Assessment & Plan (03/05/2024 10:17 AM KNOTTING MACHINE OPERATOR): Continue sumatriptan as needed. If migraine headaches become more frequent or more intense, patient is instructed to notify myself so we can adjust medication therapy. Marijuana use 01/16/2024 Snoring 01/16/2024 Overview (03/05/2024): Patient completed overnight polysomnogram with WatchPAT. Assessment & Plan (04/02/2024 5:41 PM KNOTTING MACHINE OPERATOR): Snoring was noted on WatchPAT sleep study however no evidence of obstructive sleep apnea was appreciated. Assessment & Plan (03/05/2024 10:23 AM KNOTTING MACHINE OPERATOR): Sleep study results have not resulted. Will contact patient when they result. Obesity 11/12/2020 Assessment & Plan (03/05/2024 10:27 AM KNOTTING MACHINE OPERATOR): Discussed with patient the importance of maintaining a healthy weight and we can discuss medication options further at next appointment if she is interested. Vitamin D deficiency 11/12/2020 Overview (04/02/2024): Component Ref Range & Units 01/16/24 1034 VITAMIN D 25 HYDROXY TOTAL S/P/B 30 - 100 NG/ML 20.0 Low Assessment & Plan (04/02/2024 5:40 PM KNOTTING MACHINE OPERATOR): Counseled patient to take vitamin with at least vitamin D3 1000 to 2000 IU daily Low back pain without sciatica 05/24/2018 Overview (04/02/2024): She reports she has been going to physical therapy. She reports some improvement since starting physical therapy with her back pain especially with cupping on her back. Assessment & Plan (04/02/2024 5:41 PM KNOTTING MACHINE OPERATOR): Continue physical therapy at this time. Assessment & Plan (03/05/2024 10:20 AM KNOTTING MACHINE OPERATOR): New referral is placed to patient's current physical therapy location [facility]. Perennial allergic rhinitis 10/14/2017 Overview (03/05/2024): Patient reports she is taking cetirizine daily as needed. Assessment & Plan (03/05/2024 10:18 AM KNOTTING MACHINE OPERATOR): She is counseled that she may benefit from using Flonase/fluticasone nasal spray 1 spray in each nostril daily. She is counseled how to use this nasal spray medication appropriately. Mild intermittent asthma ([facility]) 12/15/2016 Resolved Problems Problem Noted Date Diagnosed [...] scapula 08/12/20172023 Patellofemoral pain syndrome 04/20/2017 04/02/2024 Immunizations Immunization Administration Dates Next Due Dtap (Acel-Immune) 01/22/2008, [...] Information Value Date Recorded Sex Assigned at Female 10/01/2024 3:44 PM CDT Legal Sex Female 3:40 PM CDT Gender Identity Female 10/01/2024 3:44 PM CDT Sexual Orientation Not on file Last Filed Vital Signs Vital Sign Reading Time Taken Comments Blood Pressure 112/71 04/02/2024 4:05 PM KNOTTING MACHINE OPERATOR Pulse 77 04/02/2024 4:05 PM KNOTTING MACHINE OPERATOR Temperature 36.8 C (98.2 F) 04/02/2024 4:05 PM KNOTTING MACHINE OPERATOR Respiratory Rate 16 04/02/2024 4:05 PM KNOTTING MACHINE OPERATOR Oxygen Saturation 96% 04/02/2024 4:05 PM KNOTTING MACHINE OPERATOR Inhaled Oxygen Concentration - - Weight 93.9 kg (207 lb) 04/02/2024 4:05 PM KNOTTING MACHINE OPERATOR Height 170.2 cm (5' 7) 04/02/2024 4:05 PM KNOTTING MACHINE OPERATOR Body Mass Index 32.42 04/02/2024 4:05 PM KNOTTING MACHINE OPERATOR Plan of Treatment Health Maintenance Due Date Last Done Comments Cervical Cancer Screening Pap Smear (Age 21 to 29) Every 3 Years 2003 Cervical Cancer Screening 2003 Annual Physical 09/25/2006 Chlamydia Screening Females ages 16-24 2019 Hepatitis C 09/25/2021 PHQ-2 (Physician [facility]) 04/18/2024 01/16/2024 COVID-19 Vaccine (3 - season) 2024 01/04/2021, 12/11/2020 Influenza Adult (#1) 2025 03/05/2024, 03/19/2021, 04/01/2020, Additional history exists Pneumococcal Vaccine: Pediatrics (0 to 5 Years) and At-Risk Patients (6 to 49 Years) (1 of 2 - PCV) 10/01/2025 10/21/2004, 03/27/2004, 02/07/2004, Additional history exists Postponed from 09/25/2022 (Patient Refused) DTaP, Tdap and Td Vaccines (8 - Td or Tdap) 03/05/2034 03/05/2024, 10/22/2013, 01/22/2008, Additional history exists Hepatitis B Vaccines Completed 03/27/2004, 03/27/2004, 2003, Additional history exists HPV Vaccines Completed 08/11/2015, 11/2014, 10/15/2014 Meningococcal Vaccine Completed 04/01/2020, 015 Meningococcal B Vaccine Completed 09/30/2020, 04/01 RSV Immunizations Under 20 Months Aged Out No longer eligible based on patient's age to complete this topic Insurance [facility] Care Teams Program Evaluation Consultant Relationship Specialty Start Date End Date Montserrat Ibrahim MD [address] [id number] PCP - General FAMILY PRACTICE 12/10/24
[2025-01-21 15:52] LABS: Add Urine Microscopic? YES; Appearance Urine Cloudy (Clear); Glucose Urine UA Negative (Negative); Leukocyte Esterase Ur 1+ LEU/UL (Negative); Nitrate Urine Negative (Negative); Non Pathogenic Casts 0-2; Specific Grav Ur 1.025 (1.001-1.035)
[2025-01-21 15:56] LABS: Total Protein Urine Random 25 mg/dL; Ur Ttl Prot Creatinine Ratio 0.17 mg/mg (0-0.20)
--- NOTE | 2025-01-21 16:02 | PC.NURSE ---
Dr Brunson notified of lab results, NST and noted arrhythmia, and BP's, Tracing reviewed per MD in office. Orders for BPP and have patient come in Wed for repeat NST and BPP.
--- NOTE | 2025-01-21 16:09 | PM.OBTRLD ---
OB - Triage/Final Diagnosis Visit Information Date of evaluation: 01/21/25 Reason for evaluation: other (elevated blood pressure) Comments/Additional reasons for admission: I have assessed the risk for this patient, Pina Luther, and determined that she would benefit from observation care. Evaluation Laboratory results: Laboratory Tests 01/21/25 01/21/25 15:23 15:37 WBC 15.2 H RBC 4.36 Hgb 11.5 L Hct 35.2 L MCV 80.7 MCH 26.4 MCHC 32.7 RDW 13.5 Plt Count 357 D MPV 9.5 Immature Gran % (Auto) 1.1 H Neut % (Auto) 77.6 H Lymph % (Auto) 13.6 L Beckham % (Auto) 6.8 Eos % (Auto) 0.5 Baso % (Auto) 0.4 Lymph # (Auto) 2.07 Beckham # (Auto) 1.0 H Eos # (Auto) 0.1 Baso # (Auto) 0.1 Abs Immat Gran (auto) 0.17 H Absolute Neuts (auto) 11.8 H Absolute Nucleated RBC 0.000 Nucleated RBC % 0.0 Sodium 133 L Potassium 4.0 Chloride 105 Carbon Dioxide 19 L Anion Gap 9 BUN 18 H Creatinine 0.78 Estim Creat Clear Calc Not Reportable Estimated GFR > 60 Glucose 112 H Uric Acid 5.1 Calcium 9.3 Total Bilirubin 0.2 AST 36 ALT 39 H Alkaline Phosphatase 170 H Total Protein 6.4 Albumin 3.3 L Urine Color Yellow Urine Appearance Cloudy H Urine pH 5.5 Ur Specific [place] 1.025 Urine Protein 1+ H Urine Glucose (UA) Negative Urine Ketones Negative Ur Blood (Man) 1+ H Urine Nitrate Negative Urine Bilirubin Negative Urine Urobilinogen 0.2 Leukocyte Esterase Rfl 1+ H Urine RBC 21-50 H Urine WBC 21-50 H Ur Squamous Epith Cells Moderate Urine Bacteria Rare Urine Casts 0-2 U Random Total Protein 25 Urine Creatinine 146.1 Protein/Creat Ratio 2 0.17 Vital signs: Vital Signs - 24 hr 01/21/25 15:08 01/21/25 15:16 01/21/25 15:31 Pulse Rate 98 95 91 Blood Pressure 156/78 H 147/86 H 148/75 H 01/21/25 15:46 01/21/25 16:01 Pulse Rate 97 97 Blood Pressure 138/73 134/76
== END 2025-01-21 17:25 | disposition home or self-care (01) ==
LOC: ANHOBOP 15:01 → ANHOBPP 15:03
PROVIDERS: Visit Provider Student in an Organized Health Care Education/Training Program
DX: O36.8390 Maternal care for abnormalities of the fetal heart rate or rhythm, unspecified trimester, not applicable or unspecified (principal); O13.9 Gestational [pregnancy-induced] hypertension without significant proteinuria, unspecified trimester; Z3A.00 Weeks of gestation of pregnancy not specified
CPT/HCPCS: 36415; 59025; 76819; 80053; 81001; 82570; 84156; 84550; 85025; 99199

== ENCOUNTER 2025-01-23 14:29 | Outpatient (RCR) | payer OTHER, SELFPAY ==
--- NOTE | ~2025-01-23 | US_ITS ---
EXAMINATION: US OB BPP wo non-stress DATE: 01/23/2025 16:21 INDICATION: Hypertension during third trimester . arrhythmia. TECHNIQUE: Real-time pelvic ultrasound was performed. The interpreting radiologist was not present for the study. COMPARISON: None. FINDINGS: There is a single living fetus in vertex presentation. The placenta is fundal. heart rate is 142 beats per minute (bpm) and appears regular in rhythm. Amniotic fluid volume is subjectively normal with normal deepest vertical pocket measurement of 6.8 cm Biophysical profile performed by the technologist: breathing (30 sec sustained breathing in 30 minutes): 2 out of 2 movement (3 gross body movements in 30 minutes): 2 out of 2 tone (one episode of svfiqiu-rgyudvtvh-kwzszrz limb movement): 2 out of 2 Amniotic fluid pocket (2 cm): 2 out of 2 Total score: 8 out of 8 IMPRESSION: 1. Single living fetus in vertex presentation with heart rate of 142 bpm. 2. Biophysical profile 8 out of 8. Reviewed, dictated and finalized at location A.
[2025-01-23 17:36] VITALS: BP 127/87; PULSE 102
== END 2025-02-14 07:24 | disposition other institution (70) ==
LOC: ANHOBOP 14:29
PROVIDERS: Visit Provider Student in an Organized Health Care Education/Training Program
DX: O26.899 Other specified pregnancy related conditions, unspecified trimester (principal); R03.0 Elevated blood-pressure reading, without diagnosis of hypertension; Z3A.38 38 weeks gestation of pregnancy
CPT/HCPCS: 59025; 76819

== ENCOUNTER 2025-01-26 21:02 | Inpatient (IN) | payer OTHER, SELFPAY ==
[2025-01-26] VITALS (18 sets, daily range): BP systolic 127–139; BP diastolic 81; PULSE 86–106; TEMP 37.6; O2SAT 97–99; BMI 44.4
--- NOTE | 2025-01-26 21:56 | LDADM ---
This patient, Pina Luther, was admitted to Labor/Delivery/Recovery 105 on 01/26/25 at 21:02. Plans for labor, pain management and were discussed with patient. Patient/family oriented to hospital policies and general routines including ID bracelet, bed and alarms, visiting hours, pain management, procedures, bathroom and other care routines, personal items, smoking policy, room service/diet and guest tray routines, security routines, and visiting hours. Patient/Family are encouraged to report perceived risks to care and to ask questions if they do not understand what they are told or what they should do. See OBIX for further documentation.
[2025-01-26 22:18] LABS: Hematocrit 34.3 % (37.0-47.0); Hemoglobin 11.2 g/dL (12.0-15.0); Immature Granulocyte Percent A 1.0 % (0-0.5); Lymphocytes Absolute Auto 2.64 K/mm3 (0.9-3.2); Mean Corpuscular HGB Conc 32.7 g/dl (32-36); Mean Corpuscular Hemoglobin 26.2 pg (26-34); Mean Corpuscular Volume 80.3 fl (80-100); Nucleated Red Blood Cells Absolute Auto 0.000 K/mm3 (0.0-0.012); Nucleated Red Blood Cells Perc 0.0 % (0.0-0.2); Platelet Count Result 358 k/mm3 (150-375); Red Blood Count 4.27 M/mm3 (4.2-5.4); White Blood Count 15.8 K/mm3 (4.5-10.0)
[2025-01-26 23:04] LABS: Syphilis IgG/IgM Antibody Non-Reactive (Nonreactive)
[2025-01-27] VITALS (166 sets, daily range): BP systolic 110–148; BP diastolic 43–106; PULSE 83–123; RESP 16–18; TEMP 36.6–37.6; O2SAT 95–100
[2025-01-27] MEDS: OXYTOCIN 30 UNITS/NS 500 ML 30 UNITS/500 ML BAG 6 UNITS IV CONT (02:27)
[2025-01-27] MEDS: LACTATED RINGERS 1,000 ML 125 ML IV CONT ×3 (02:27→11:23)
--- NOTE | 2025-01-27 06:10 | WPDANESEPPF ---
Anes - Initial Pre Proc Eval Procedure: labor epidural Date/Time: 01/27/25 06:10 Surgeon: Elliot Brunson MD Pre Op Diagnosis: Labor pain Pre Op Diagnosis: IOL Patient Data Age: 19 Gender: F Height: 1.7 m Weight: 128.6 kg Last Vital Signs Temp 36.7 C 01/27/25 06:01 Pulse 98 01/27/25 06:08 BP 132/68 01/27/25 06:08 Pulse Ox 98 01/27/25 06:05 O2 Del Method Room Air 01/26/25 21:53 Allergies Allergy/AdvReac Type Severity Reaction Status Date / Time No Known Allergies Allergy Verified 01/23/25 14:52 Home Medications ?Medication ?Instructions ?Recorded ?Confirmed ?Type cetirizine 10 mg capsule (Allergy 10 mg PO DAILY PRN allergy symptoms 06/25/24 01/14/25 History Relief (cetirizine)) vits no.126-ferrous fum tablet PO 06/25/24 01/14/25 History 28 mg iron-folic acid 800 mcg tablet (Classic ) sertraline 50 mg tablet 50 mg PO DAILY 06/25/24 01/14/25 History Laboratory Tests 01/26/25 22:11 WBC 15.8 H K/mm3 (4.5-10.0) RBC 4.27 M/mm3 (4.2-5.4) Hgb 11.2 L g/dL (12.0-15.0) Hct 34.3 L % (37.0-47.0) MCV 80.3 fl (80-100) MCH 26.2 pg (26-34) MCHC 32.7 g/dl (32-36) RDW 14.1 % (11.5-14.5) Plt Count 358 k/mm3 (150-375) MPV 9.6 fl (7.4-10.4) Immature Gran % (Auto) 1.0 H % (0-0.5) Neut % (Auto) 72.7 % (45.5-73.1) Lymph % (Auto) 16.8 L % (18.3-44.2) [place] % (Auto) 8.4 % (2.6-8.5) Eos % (Auto) 0.7 % (0-4.4) Baso % (Auto) 0.4 % (0.2-1.2) Lymph # (Auto) 2.64 K/mm3 (0.9-3.2) [place] # (Auto) 1.3 H K/mm3 (0.1-0.6) Eos # (Auto) 0.1 K/mm3 (0-0.3) Baso # (Auto) 0.1 K/mm3 (0.0-0.1) Abs Immat Gran (auto) 0.16 H K/mm3 (0.00-0.031) Absolute Neuts (auto) 11.5 H K/mm3 (1.3-6.7) Absolute Nucleated RBC 0.000 K/mm3 (0.0-0.012) Nucleated RBC % 0.0 % (0.0-0.2) Syphilis IgG/IgM Ab Non-reactive (Nonreactive) Blood Type A Positive Antibody Screen Negative Patient hx anesthesia problems: none Family hx anesthesia problems: none Results Review: All pre-operative results and documents have been reviewed as part of the pre-operative evaluation. [facility] Past Medical History Medical History Anxiety Allergies Surgical History Surgical History H/O Spinal surgery Family History Family History Mother No problems noted. Grandparent Diabetes mellitus Thyroid disorder Social History Social History Smoking status: Never smoker Second hand tobacco smoke exposure: Yes Alcohol intake: former Alcohol use details: not while Substance use: former Substance use type: marijuana Do You Feel Safe in your Home?: Yes Lack of Transportation: No Lack of Food: Never True Current Housing: I Have Housing Concerned About Future Housing: No Difficulty Paying Gas/Electric Bills: No Difficulty Paying for Meds: No Currently Unemployed: No Education: High School Diploma/GED Difficulty w/ Childcare or Family Care: No Living arrangements: other Additional living arrangements comments: partner Occupation/Education: occupation Gender identity (if verbalized by the patient): Female Sexual Orientation (if Verbalized by the Patient): Straight or Heterosexual Spiritual care concerns: No Anes - Eval Final PreProcedure Day of Procedure 01/27/25 06:10 Heart: regular rate and rhythm Lungs: clear to auscultation and normal air movement Airway: Mallampati scale class II Neurological: alert and oriented ASA classification: III Anesthetic plan: proceed Anesthesia type and monitoring: regional epidural and standard monitoring Results Review: All pre-operative results and documents have been reviewed as part of the pre-operative evaluation. Informed Consent: The patient's anesthetic plan and its attendant risks and benefits were discussed with the patient/family/POA. Questions were solicited and answers provided to the satisfaction of the patient/family/POA.
--- NOTE | 2025-01-27 12:52 | PM.IMHP ---
H&P: HPI History of Present Illness Date/Time: 01/27/25 12:52 Chief Complaint: Vicki doss Narrative: 19 y/o G1 at 39 1/7 weeks who had a gush of clear fluid last evening at 1999. SROM was confirmed on her admission. We have augmented labor with oxytocin. She is now comfortable with epidural and pushing well at the time of my arrival. notable for anxiety treated with sertraline, gestational HTN (transaminase slightly elevated last week, other labs normal), and a arrythmia. See delivery note under a separate cover. Review of Systems Review of Systems: All systems reviewed & are unremarkable except as noted in HPI and below PMFSH Past Medical History Medical History Anxiety Allergies Surgical History Surgical History H/O Spinal surgery Family History Family History Mother No problems noted. Grandparent Diabetes mellitus Thyroid disorder Social History Social History Smoking status: Never smoker Second hand tobacco smoke exposure: Yes Alcohol intake: former Alcohol use details: not while Substance use: former Substance use type: marijuana Do You Feel Safe in your Home?: Yes Lack of Transportation: No Lack of Food: Never True Current Housing: I Have Housing Concerned About Future Housing: No Difficulty Paying Gas/Electric Bills: No Difficulty Paying for Meds: No Currently Unemployed: No Education: High School Diploma/GED Difficulty w/ Childcare or Family Care: No Living arrangements: other Additional living arrangements comments: partner Occupation/Education: occupation Gender identity (if verbalized by the patient): Female Sexual Orientation (if Verbalized by the Patient): Straight or Heterosexual Spiritual care concerns: No Meds Home Medications and Allergies Home Medications ?Medication ?Instructions ?Recorded ?Confirmed ?Type cetirizine 10 mg capsule (Allergy 10 mg PO DAILY PRN allergy symptoms 06/25/24 01/14/25 History Relief (cetirizine)) vits no.126-ferrous fum tablet PO 06/25/24 01/14/25 History 28 mg iron-folic acid 800 mcg tablet (Classic ) sertraline 50 mg tablet 50 mg PO DAILY 06/25/24 01/14/25 History Allergies Allergy/AdvReac Type Severity Reaction Status Date / Time No Known Allergies Allergy Verified 01/27/25 09:44 Vital Signs Vital Signs - 24 hr 01/26/25 21:15 01/26/25 21:34 01/26/25 21:39 Temperature 99.7 F H Pulse Rate Blood Pressure Pulse Oximetry 99 99 Oxygen Delivery 01/26/25 21:44 01/26/25 21:45 01/26/25 21:49 Temperature Pulse Rate 98 Blood Pressure 127/81 Pulse Oximetry 99 98 Oxygen Delivery 01/26/25 21:53 01/26/25 21:54 01/26/25 21:59 Temperature Pulse Rate Blood Pressure Pulse Oximetry 98 99 Oxygen Delivery Room Air 01/26/25 22:03 01/26/25 22:18 01/26/25 22:23 Temperature Pulse Rate Blood Pressure Pulse Oximetry 97 98 98 Oxygen Delivery 01/26/25 23:30 01/26/25 23:35 01/26/25 23:36 Temperature Pulse Rate 97 Blood Pressure 139/81 Pulse Oximetry 98 98 Oxygen Delivery 01/26/25 23:40 01/26/25 23:45 01/26/25 23:50 Temperature Pulse Rate Blood Pressure Pulse Oximetry 98 98 98 Oxygen Delivery 01/26/25 23:55 01/27/25 00:00 01/27/25 00:05 Temperature Pulse Rate Blood Pressure Pulse Oximetry 98 98 98 Oxygen Delivery 01/27/25 00:10 01/27/25 00:15 01/27/25 01:24 Temperature 99.7 F H Pulse Rate Blood Pressure Pulse Oximetry 98 98 Oxygen Delivery 01/27/25 01:28 01/27/25 01:30 01/27/25 01:31 Temperature Pulse Rate 93 Blood Pressure 116/81 Pulse Oximetry 100 100 Oxygen Delivery 01/27/25 01:36 01/27/25 01:41 01/27/25 01:46 Temperature Pulse Rate Blood Pressure Pulse Oximetry 99 99 99 Oxygen Delivery 01/27/25 01:51 01/27/25 01:56 01/27/25 02:01 Temperature Pulse Rate Blood Pressure Pulse Oximetry 99 99 99 Oxygen Delivery 01/27/25 02:06 01/27/25 02:11 01/27/25 02:26 Temperature Pulse Rate Blood Pressure Pulse Oximetry 100 99 97 Oxygen Delivery 01/27/25 02:31 01/27/25 02:36 01/27/25 02:41 Temperature Pulse Rate 97 Blood Pressure 128/76 Pulse Oximetry 98 97 98 Oxygen Delivery 01/27/25 02:45 01/27/25 02:46 01/27/25 02:51 Temperature Pulse Rate 96 Blood Pressure 125/69 Pulse Oximetry 98 97 Oxygen Delivery 01/27/25 02:56 01/27/25 03:00 01/27/25 03:01 Temperature Pulse Rate 92 Blood Pressure 136/82 Pulse Oximetry 98 98 Oxygen Delivery 01/27/25 03:06 01/27/25 03:11 01/27/25 03:16 Temperature Pulse Rate 97 Blood Pressure 132/87 Pulse Oximetry 99 98 98 Oxygen Delivery 01/27/25 03:21 01/27/25 03:26 01/27/25 03:31 Temperature Pulse Rate 93 Blood Pressure 131/57 L Pulse Oximetry 99 99 99 Oxygen Delivery 01/27/25 03:36 01/27/25 03:41 01/27/25 03:46 Temperature Pulse Rate 93 Blood Pressure 143/73 H Pulse Oximetry 98 99 99 Oxygen Delivery 01/27/25 03:51 01/27/25 03:56 01/27/25 04:01 Temperature Pulse Rate 96 Blood Pressure 126/76 Pulse Oximetry 99 99 99 Oxygen Delivery 01/27/25 04:06 01/27/25 04:11 01/27/25 04:16 Temperature Pulse Rate 90 Blood Pressure 143/70 H Pulse Oximetry 100 99 99 Oxygen Delivery 01/27/25 04:18 01/27/25 04:21 01/27/25 04:26 Temperature 99.1 F Pulse Rate Blood Pressure Pulse Oximetry 98 99 Oxygen Delivery 01/27/25 04:31 01/27/25 04:36 01/27/25 04:41 Temperature Pulse Rate 91 Blood Pressure 136/63 Pulse Oximetry 99 99 98 Oxygen Delivery 01/27/25 04:46 01/27/25 04:51 01/27/25 05:04 Temperature Pulse Rate 95 Blood Pressure 135/81 Pulse Oximetry 99 98 99 Oxygen Delivery 01/27/25 05:09 01/27/25 05:14 01/27/25 05:15 Temperature Pulse Rate 89 Blood Pressure 138/67 Pulse Oximetry 99 99 Oxygen Delivery 01/27/25 05:19 01/27/25 05:20 01/27/25 05:25 Temperature Pulse Rate Blood Pressure Pulse Oximetry 99 99 99 Oxygen Delivery 01/27/25 05:30 01/27/25 05:35 01/27/25 05:37 Temperature Pulse Rate 99 104 H Blood Pressure 138/81 125/102 H Pulse Oximetry 99 99 Oxygen Delivery 01/27/25 05:38 01/27/25 05:40 01/27/25 05:45 Temperature Pulse Rate 102 H Blood Pressure 131/83 Pulse Oximetry 99 99 Oxygen Delivery 01/27/25 05:50 01/27/25 05:52 01/27/25 05:53 Temperature Pulse Rate 91 103 H 115 H Blood Pressure 136/106 H 128/59 L 122/43 L Pulse Oximetry 99 Oxygen Delivery 01/27/25 05:55 01/27/25 05:58 01/27/25 06:00 Temperature Pulse Rate 105 H 96 104 H Blood Pressure 142/61 H 136/63 133/66 Pulse Oximetry 98 99 Oxygen Delivery 01/27/25 06:01 01/27/25 06:03 01/27/25 06:05 Temperature 98.1 F Pulse Rate 101 H 96 Blood Pressure 135/71 131/53 L Pulse Oximetry 98 Oxygen Delivery 01/27/25 06:08 01/27/25 06:10 01/27/25 06:13 Temperature Pulse Rate 98 102 H 101 H Blood Pressure 132/68 129/66 124/64 Pulse Oximetry 98 Oxygen Delivery 01/27/25 06:15 01/27/25 06:18 01/27/25 06:20 Temperature Pulse Rate 96 103 H Blood Pressure 128/66 125/60 Pulse Oximetry 99 98 Oxygen Delivery 01/27/25 06:21 01/27/25 06:24 01/27/25 06:25 Temperature Pulse Rate 95 100 Blood Pressure 128/64 120/60 Pulse Oximetry 97 Oxygen Delivery 01/27/25 06:27 01/27/25 06:30 01/27/25 06:33 Temperature Pulse Rate 103 H 100 103 H Blood Pressure 124/69 129/71 129/69 Pulse Oximetry 97 Oxygen Delivery 01/27/25 06:35 01/27/25 06:36 01/27/25 06:40 Temperature 98.5 F Pulse Rate 103 H Blood Pressure 130/65 Pulse Oximetry 97 99 Oxygen Delivery 01/27/25 06:45 01/27/25 06:50 01/27/25 06:55 Temperature Pulse Rate 99 Blood Pressure 128/63 Pulse Oximetry 99 98 99 Oxygen Delivery 01/27/25 07:00 01/27/25 07:01 01/27/25 07:05 Temperature Pulse Rate 100 Blood Pressure 111/48 L Pulse Oximetry 99 98 Oxygen Delivery 01/27/25 07:10 01/27/25 07:15 01/27/25 07:20 Temperature Pulse Rate 90 Blood Pressure 111/55 L Pulse Oximetry 99 98 98 Oxygen Delivery 01/27/25 07:25 01/27/25 07:30 01/27/25 07:31 Temperature Pulse Rate 99 Blood Pressure 111/52 L Pulse Oximetry 98 98 Oxygen Delivery 01/27/25 07:35 01/27/25 07:40 01/27/25 07:45 Temperature Pulse Rate Blood Pressure Pulse Oximetry 97 97 98 Oxygen Delivery 01/27/25 07:50 01/27/25 07:55 01/27/25 08:00 Temperature Pulse Rate 84 Blood Pressure 129/67 Pulse Oximetry 99 99 98 Oxygen Delivery 01/27/25 08:05 01/27/25 08:10 01/27/25 08:15 Temperature Pulse Rate 91 Blood Pressure 136/62 Pulse Oximetry 98 98 97 Oxygen Delivery 01/27/25 08:20 01/27/25 08:25 01/27/25 08:30 Temperature 97.9 F Pulse Rate Blood Pressure Pulse Oximetry 97 96 97 Oxygen Delivery 01/27/25 08:31 01/27/25 08:35 01/27/25 08:40 Temperature Pulse Rate 90 Blood Pressure 129/60 Pulse Oximetry 96 97 Oxygen Delivery 01/27/25 08:45 01/27/25 08:50 01/27/25 08:55 Temperature Pulse Rate 84 Blood Pressure 130/66 Pulse Oximetry 96 97 96 Oxygen Delivery 01/27/25 09:00 01/27/25 09:05 01/27/25 09:10 Temperature Pulse Rate 89 Blood Pressure 133/69 Pulse Oximetry 96 97 97 Oxygen Delivery 01/27/25 09:12 01/27/25 09:15 01/27/25 09:20 Temperature Pulse Rate 87 Blood Pressure 130/66 Pulse Oximetry 98 98 Oxygen Delivery Room Air 01/27/25 09:25 01/27/25 09:30 01/27/25 09:35 Temperature Pulse Rate 91 Blood Pressure 126/58 L Pulse Oximetry 98 97 99 Oxygen Delivery 01/27/25 09:40 01/27/25 09:45 01/27/25 09:46 Temperature Pulse Rate 100 Blood Pressure 113/54 L Pulse Oximetry 99 98 Oxygen Delivery 01/27/25 09:50 01/27/25 09:55 01/27/25 10:00 Temperature Pulse Rate 101 H Blood Pressure 110/49 L Pulse Oximetry 98 97 97 Oxygen Delivery 01/27/25 10:05 01/27/25 10:10 01/27/25 10:15 Temperature Pulse Rate 101 H Blood Pressure 114/48 L Pulse Oximetry 97 96 97 Oxygen Delivery 01/27/25 10:20 01/27/25 10:25 01/27/25 10:30 Temperature Pulse Rate 107 H Blood Pressure 111/52 L Pulse Oximetry 96 97 97 Oxygen Delivery 01/27/25 10:33 01/27/25 10:33 01/27/25 10:38 Temperature Pulse Rate Blood Pressure Pulse Oximetry 96 99 99 Oxygen Delivery 01/27/25 10:43 01/27/25 10:45 01/27/25 10:48 Temperature Pulse Rate 111 H Blood Pressure 133/67 Pulse Oximetry 99 99 Oxygen Delivery 01/27/25 10:53 01/27/25 10:58 01/27/25 11:01 Temperature Pulse Rate 98 Blood Pressure 125/58 L Pulse Oximetry 100 100 Oxygen Delivery 01/27/25 11:03 01/27/25 11:08 01/27/25 11:13 Temperature Pulse Rate Blood Pressure Pulse Oximetry 99 99 100 Oxygen Delivery 01/27/25 11:15 01/27/25 11:18 01/27/25 11:23 Temperature Pulse Rate 111 H Blood Pressure 135/71 Pulse Oximetry 99 100 Oxygen Delivery 01/27/25 11:28 01/27/25 11:31 01/27/25 11:46 Temperature Pulse Rate 104 H 97 Blood Pressure 146/68 H 148/60 H Pulse Oximetry 100 Oxygen Delivery 01/27/25 11:57 01/27/25 12:01 01/27/25 12:02 Temperature Pulse Rate 114 H Blood Pressure 140/89 Pulse Oximetry 98 98 Oxygen Delivery 01/27/25 12:07 01/27/25 12:12 Temperature Pulse Rate Blood Pressure Pulse Oximetry 98 99 Oxygen Delivery Exam Const: Other: Well-developed, well-nourished female in no acute distress. GI: Other: ABD: Soft, nontender, nondistended, gravid. No guarding or rebound tenderness. No hepatosplenomegaly. NST reactive, but with audible arrhythmia. TOCO: contractions every 2-3 min. : Other: Cervix: complete / +2 at time of my arrival. Extrem: Other: Extremities: nontender with no edema H&P: Results Labs Labs: Short CBC 01/26/25 Range/Units 22:11 WBC 15.8 H (4.5-10.0) K/mm3 Hgb 11.2 L (12.0-15.0) g/dL Hct 34.3 L (37.0-47.0) % Plt Count 358 (150-375) k/mm3 Assessment and Plan Assessment and plan (1) SROM (spontaneous rupture of membranes): Status: Acute Assessment and Plan: A: IUP at 39 1/7 weeks with SROM/labor. Pushing well. P: See separate delivery note. (2) Active labor at term: Status: Acute (3) Gestational hypertension: Code(s): O13.9 - Gestational [-induced] hypertension without significant proteinuria, unspecified trimester Status: Acute (4) arrhythmia affecting , antepartum: Code(s): O36.8390 - Maternal care for abnormalities of the heart rate or rhythm, unspecified trimester, not applicable or unspecified Status: Acute (5) Anxiety: Code(s): F41.9 - Anxiety disorder, unspecified Status: Acute
--- NOTE | 2025-01-27 12:58 | PM.OBPRVD ---
OB - Vaginal Delivery Note Procedure Delivery date: 01/27/25 Events: Gestational Hypertension Delivery augmentation: Pitocin Delivery monitor: External FHT, External Uterine and Internal Uterine Route of delivery: Episiotomy description: None Laceration Description: Perineal - 1st Degree Delivery repair: vicryl (3-0) Specimen: Yes (cord blood) Quantitative Blood Loss (ml): 250 Anesthesia type: Epidural Disposition: PACU Complications: None Narrative: 19 y/o G1 at 39 1/7 weeks gestation who presented to the hospital after a gush of fluid. SROM was confirmed and she was admitted to L&D. A previously observed arrhythmia was again noted. Labor was subsequently augmented with oxytocin administered intravenously. She received an epidural for pain control. Her labor progressed and her cervix dilated completely. She pushed with good effort and delivered the infant's head to the perineum, followed by the body. The nose and mouth were bulb suctioned. After a delay, the cord was clamped and cut. The infant was handed off the field. Cord blood was collected. The placenta delivered spontaneously and was grossly normal in appearance. The usual 3 vessel cord was noted. A first degree midline perineal laceration was sustained. This was reapproximated using 3 0 Vicryl in the usual layered fashion. Excellent hemostasis resulted as did excellent reapproximation of the normal anatomy. Needle and instrument counts were correct. The patient was taken to recovery room in stable condition. The infant went to the nursery in stable condition. I was present and scrubbed for the entire delivery. Baby Date of : 01/27/25 Time of : 12:33 Gestational Age by Date: 39 Infant gender: Male Weight (pounds): 7 Weight (ounces): 15 presentation: vertex position: Left Occiput Anterior Placenta delivery description: Spontaneous and Normal Configuration Cord Vessel Description: 3 Vessels and Delayed Cord Clamping score one minute: 8 score five minutes: 9
--- NOTE | 2025-01-27 13:01 | P.DS_ITS ---
DS: Admitting Diagnosis Discharge Date 01/29/25 Admitting Diagnosis IUP at 39 1/7 weeks SROM Gestational hypertension cardiac arrhythmia Anxiety DS: Discharge Diagnosis Discharge Diagnosis (1) (normal spontaneous vaginal delivery): Code(s): O80 - Encounter for full-term uncomplicated delivery Status: Acute OB - DS: Summary OB Procedures : NST OB Procedures Intrapartum: Spontaneous Vag Delivery OB Procedures: : None Peripartum Data Laceration Description: Perineal - 1st Degree Episiotomy description: None Time Spent with Patient Time attestation: Total time spent providing and/or coordinating discharge services: DS: Data Data Completed and Pending Labs on day of discharge: Labs from last 24 hours 01/26/25 22:11 WBC 15.8 H RBC 4.27 Hgb 11.2 L Hct 34.3 L MCV 80.3 MCH 26.2 MCHC 32.7 RDW 14.1 Plt Count 358 MPV 9.6 Immature Gran % (Auto) 1.0 H Neut % (Auto) 72.7 Lymph % (Auto) 16.8 L [place] % (Auto) 8.4 Eos % (Auto) 0.7 Baso % (Auto) 0.4 Lymph # (Auto) 2.64 [place] # (Auto) 1.3 H Eos # (Auto) 0.1 Baso # (Auto) 0.1 Abs Immat Gran (auto) 0.16 H Absolute Neuts (auto) 11.5 H Absolute Nucleated RBC 0.000 Nucleated RBC % 0.0 Syphilis IgG/IgM Ab Non-reactive Blood Type A Positive Antibody Screen Negative Discharge Plan Discharge Attending physician on discharge: Elliot Brunson Consulting providers: Orville Da Silva; Rosaura Avilez Discharging Clinician: Elliot Brunson Patient Disposition: Home Activity: pelvic rest Diet: regular Discharge Instructions: Call or return if temperature above 100.4? F, increased abdominal pain, increased vaginal bleeding or any new problems.Education: Mom and Baby Guide Given to: Mother Follow-Up: Call your delivering provider's office for an appointment to be seen in: Call office for appointment Mom and baby should come to the [facility] for the follow-up appointment. Appointment Date/Time: January 30, 2025 at 2:30 pm What to expect at your follow-up visit: Blood Pressure Check Physical Assessment Call [phone] if you are unable to keep your appointment time. BREAST CARE: * Wear a snug supportive bra. * For engorgement discomfort: Breast Feeding: * Apply warm moist washcloths * Express milk as needed to relieve engorgement * Wear loose clothing Bottle Feeding: * May apply ice packs * For sore nipples: * Identify correct latch-on * Apply warm moist washcloths before and after nursing * Air dry nipples after nursing * May apply Lansinoh cream to nipples EPISIOTOMY/PERINEAL CARE: * Until bleeding stops, use your jennie bottle after urinating * Change your pad frequently throughout the day * You may take sitz baths several times a day (fill your bathtub with warm water and soak for 20 minutes.) Do NOT bathe in the water * No tub baths until seen by your physician - You may shower ACTIVITY: * Rest as much as possible. * Do not exercise or lift anything heavier than your baby (such as laundry or other children.) * Avoid stairs or driving as much as possible. * Do not put anything into the vagina. No douching, tampons, or sexual activity until seen by physician. NOTIFY PHYSICIAN IF YOU HAVE ANY QUESTIONS OR IF ANY OF THE FOLLOWING SYMPTOMS OCCUR: * If your vaginal bleeding becomes foul smelling. * If your vaginal bleeding becomes more heavy than a period or if your bleeding changes from pink to bright red. However, you may pass an occasional walnut- sized clot once or twice for the first week . * If you experience a sharp, shooting pain in you calves. * If you discover a hard, reddened area on your breast or if you experience flu- like symptoms. DIET: * Eat regular, well-balanced meals. * Drink plenty of fluids daily. If , drink to thirst. Patient Language: Kinyarwanda Stand Alone Forms: General Discharge Information Follow-up/Referrals: Elliot Brunson MD [Physician, VIRTUALIZATION ARCHITECT] - Call for Appointment Discharge Medications: New acetaminophen 500 mg tablet 500 mg PO Q6H PRN (Reason: pain) Qty: 30 0RF ibuprofen 600 mg tablet 600 mg PO Q6H PRN (Reason: pain) Qty: 30 0RF Continued sertraline 50 mg tablet 50 mg PO DAILY Allergy Relief (cetirizine) 10 mg capsule 10 mg PO DAILY PRN (Reason: allergy symptoms) Classic 28 mg iron- 800 mcg tablet PO Date of admission: 01/26/25 21:02 Primary Care Provider: UNKNOWN,DOCTOR Admitting Provider: Iván Snow Attending physician on admission: Elliot Brunson Condition: Stable
[2025-01-27] MEDS: ACETAMINOPHEN 500 MG TABLET 1000 MG PO (13:30)
[2025-01-27] MEDS: WITCH HAZEL 40 PADS 1 PAD TOPICAL (14:53)
[2025-01-27] MEDS: BENZOCAINE 20% AER SPR (*SP) 56 GM CAN 1 SPRAY TOPICAL (14:53)
[2025-01-28 04:05] VITALS: BP 134/82; PULSE 109; RESP 18; TEMP 36.4; O2SAT 99
[2025-01-28 04:26] LABS: Hematocrit 32.6 % (37.0-47.0); Hemoglobin 10.3 g/dL (12.0-15.0)
[2025-01-28 04:42] LABS: Alanine Aminotransferase 208 U/L (6-35); Albumin Level 3.0 g/dL (3.5-5.1); Alkaline Phosphatase 148 U/L (38-126); Anion Gap 5 mmol/L (4-12); Aspartate Amino Transferase 124 U/L (14-36); Bilirubin,Total 0.3 mg/dL (0.2-1.3); Blood Urea Nitrogen 15 mg/dL (7-17); Calcium 8.9 mg/dL (8.4-10.2); Carbon Dioxide 22 mmol/L (22-30); Chloride 108 mmol/L (98-107); Estimated CRCL calculation 115 ml/min; Estimated Glomerular Filt Rate > 60; Glucose 88 mg/dL (65-110); Potassium 4.0 mmol/L (3.4-5.0); Sodium 135 mmol/L (137-145); Total Protein 5.7 g/dL (6.3-8.2)
[2025-01-28] MEDS: ACETAMINOPHEN 325 MG TABLET 650 MG PO ×2 (07:05→19:06)
[2025-01-28] MEDS: DOCUSATE SODIUM 100 MG CAPSULE PO (07:05)
[2025-01-28] MEDS: MULTIVIT/MIN/PREN/FOL AC/IRON TABLET 1 TAB PO (07:05)
[2025-01-28 07:27] VITALS: BP 136/84; PULSE 96; RESP 20; TEMP 36.6; O2SAT 97
--- NOTE | 2025-01-28 08:32 | PM.OBPNVD ---
OB - PN: Subj Subjective Date/time seen: 01/28/25 08:32 Patient comments: no complaints, pain well controlled and tolerating diet [place] feeding status: exclusively breast feeding Narrative: patient doing well this AM. No complaints. Pain is well controlled. She reports minimal bleeding. She is ambulating and voiding without difficulty. She is tolerating PO. She denies N/V, fever, chills. OB - PN: Obj Data Labs 01/28/25 04:07 01/28/25 04:07 Labs: Laboratory Results - last 24 hr 01/28/25 04:07 Hgb 10.3 L Hct 32.6 L Sodium 135 L Potassium 4.0 Chloride 108 H Carbon Dioxide 22 Anion Gap 5 BUN 15 Creatinine 0.95 Estim Creat Clear Calc 115 Estimated GFR > 60 Glucose 88 Calcium 8.9 Total Bilirubin 0.3 AST 124 H ALT 208 H Alkaline Phosphatase 148 H Total Protein 5.7 L Albumin 3.0 L OB - PN A/P Plan day: 1 Plan: routine care Comments: patient doing well H/H stable BP normal liver enzymes elevated, will repeat tomorrow to trend downward continue routine care Time Spent With Patient Time: Total time spent is greater than 50% in coordination of care (as documented) at patient's floor/unit and/or counseling patient: Time with patient: less than 15 minutes Review of Systems Review of Systems: All systems reviewed & are unremarkable except as noted in HPI and below Exam Const: General: comfortable and no acute distress Resp: Effort & Inspection: normal respiratory effort Cardio: Rate: regular rate GI: GI Palp: Yes Soft to palpation and No Tenderness to palpation present (GI) Auscultation: normal bowel sounds Other: fundus firm and below umbilicus. Psych: Affect: normal affect
--- NOTE | 2025-01-28 09:09 | OBPPTRN ---
Patient transferred to post room # 285. Ambulates with steady gait noted Support person present. Accompanied by Madeleine RN and Faina RN Oriented to unit, room, information board, rooming in, admission packet and security measures. Patient verbalizes understanding. Belongings gathered and transported per cart Infant transported per open isolette with mother
--- NOTE | 2025-01-28 10:00 | OBPPTRN ---
Patient transferred to post room # via ( ). Support person present. Oriented to unit, room, information board, rooming in, admission packet and security measures. Patient verbalizes understanding.
[2025-01-28 12:28] VITALS: BP 128/76; PULSE 90; RESP 16; TEMP 36.6; O2SAT 97
--- NOTE | 2025-01-28 12:30 | PC.NURSE ---
Met with patient regarding needs. Patient states that had 'latched but didn't get anything' and he has been taking Tylenol for a broken clavicle and has been sleepy. She pumped last night but has not pumped yet today. She was educated on using the pump without the colostrum collectors. Encouraged her to place drops of colostrum on a clean finger and put in baby's mouth or for small volumes we can use a syringe to collect and feed. Patient has been giving bottles of formula at each feeding. When asked if she is intending to put baby to breast for feeds, she states that baby is too sleepy. Advised patient to call out for feeding assistance or questions/concerns as needed. [employer] breast pump present in room for frequent use. Primary RN updated.
--- NOTE | 2025-01-28 13:47 | WPDANLDPN2 ---
Anes-Prog Note L&D Date/Time: 01/28/25 13:47 Comfortable throughout: labor and delivery Neuraxial method: epidural Epidural/Spinal procedure site: clean & non-tender Neuro status: Neuro function grossly intact. Vital Signs: Last Vital Signs Temp 36.6 C 01/28/25 12:28 Pulse 90 01/28/25 12:28 Resp 16 01/28/25 12:28 BP 128/76 01/28/25 12:28 Pulse Ox 97 01/28/25 12:28 O2 Del Method Room Air 01/27/25 19:00 Pain score (VAS): 0 I/O: Intake & Output 01/27/25 01/28/25 01/28/25 23:59 07:59 15:59 Intake Total 250 100 Balance 250 100 Patient feedback: Patient satisfied with anesthetic care.
[2025-01-28 16:00] VITALS: BP 132/81; PULSE 94; RESP 20; TEMP 36.7; O2SAT 99
[2025-01-28 19:10] VITALS: BP 137/74; PULSE 98; PULSE 99; RESP 16; TEMP 36.4; O2SAT 99
[2025-01-29] MEDS: ACETAMINOPHEN 325 MG TABLET 650 MG PO ×2 (03:39→09:59)
[2025-01-29 06:01] LABS: Alanine Aminotransferase 135 U/L (6-35); Albumin Level 3.0 g/dL (3.5-5.1); Alkaline Phosphatase 139 U/L (38-126); Anion Gap 5 mmol/L (4-12); Aspartate Amino Transferase 57 U/L (14-36); Bilirubin,Total < 0.1 mg/dL (0.2-1.3); Blood Urea Nitrogen 15 mg/dL (7-17); Calcium 8.7 mg/dL (8.4-10.2); Carbon Dioxide 24 mmol/L (22-30); Chloride 106 mmol/L (98-107); Estimated CRCL calculation 115 ml/min; Estimated Glomerular Filt Rate > 60; Glucose 109 mg/dL (65-110); Potassium 3.6 mmol/L (3.4-5.0); Sodium 135 mmol/L (137-145); Total Protein 5.9 g/dL (6.3-8.2)
--- NOTE | 2025-01-29 07:35 | PM.OBDSVD ---
DS: Admitting Diagnosis Discharge Date 01/29/25 Admitting Diagnosis intrauterine at term DS: Discharge Diagnosis Discharge Diagnosis (1) (normal spontaneous vaginal delivery): Code(s): O80 - Encounter for full-term uncomplicated delivery Status: Acute OB - DS: Summary OB Procedures : None OB Procedures Intrapartum: Spontaneous Vag Delivery OB Procedures: : None Peripartum Data Laceration Description: Perineal - 1st Degree Episiotomy description: None Status at Discharge Functional status at discharge: independent ambulation Overall status at discharge: patient is back to baseline Time Spent with Patient Time attestation: Total time spent providing and/or coordinating discharge services: Time spent: Less than 30 minutes Exam Const: General: comfortable and no acute distress Resp: Effort & Inspection: normal respiratory effort Auscultation: clear to auscultation bilaterally Cardio: Rate: regular rate GI: GI Palp: Yes Soft to palpation Auscultation: normal bowel sounds Other: Fundus firm below umbilicus Psych: Appearance: grossly normal Mental Status: mental status grossly normal Affect: normal affect DS: Data Data Completed and Pending Labs on day of discharge: Labs from last 24 hours 01/29/25 05:30 Sodium 135 L Potassium 3.6 Chloride 106 Carbon Dioxide 24 Anion Gap 5 BUN 15 Creatinine 0.95 Estim Creat Clear Calc 115 Estimated GFR > 60 Glucose 109 Calcium 8.7 Total Bilirubin < 0.1 L AST 57 H ALT 135 H Alkaline Phosphatase 139 H Total Protein 5.9 L Albumin 3.0 L Discharge Plan Discharge Attending physician on discharge: Elliot Brunson Discharging Clinician: Elliot Brunson Patient Disposition: Home Activity: pelvic rest Diet: regular Discharge Instructions: Call or return if temperature above 100.4? F, increased abdominal pain, increased vaginal bleeding or any new problems. Patient Language: Romansh Stand Alone Forms: General Discharge Information Follow-up/Referrals: Elliot Brunson MD [Physician, [employer]] - Call for Appointment Discharge Medications: New acetaminophen 500 mg tablet 500 mg PO Q6H PRN (Reason: pain) Qty: 30 0RF ibuprofen 600 mg tablet 600 mg PO Q6H PRN (Reason: pain) Qty: 30 0RF Continued sertraline 50 mg tablet 50 mg PO DAILY Allergy Relief (cetirizine) 10 mg capsule 10 mg PO DAILY PRN (Reason: allergy symptoms) Classic 28 mg iron- 800 mcg tablet PO Date of admission: 01/26/25 21:02 Primary Care Provider: UNKNOWN,DOCTOR Admitting Provider: Elliot Brunson Attending physician on admission: Elliot Brunson Condition: Stable
[2025-01-29 07:53] VITALS: BP 127/75; PULSE 103; RESP 103; TEMP 36.9; O2SAT 99
[2025-01-29 08:15] VITALS: BP 124/68; PULSE 85; RESP 18; TEMP 36.9; O2SAT 99
[2025-01-29] MEDS: SERTRALINE HCL 50 MG TABLET PO (09:59)
[2025-01-29] MEDS: MULTIVIT/MIN/PREN/FOL AC/IRON TABLET 1 TAB PO (09:59)
[2025-01-29] MEDS: IBUPROFEN 600 MG TABLET PO (09:59)
--- NOTE | 2025-01-29 12:44 | PC.NURSE ---
1244 Consulted with mother concerning needs and she shared that she had attempted to put baby to breast, had also used her breast pump and baby is feeding well with the bottle. Mother was feeling very tired today and overwhelmed, encouraged her to consistently use her breast pump if baby does not feed effectively at the breast. Mother was given handouts on Common Issues, Milk Storage Guidelines and Your Baby. Mother is feeding appropriately for growth of and understands stimulating to eat if needed. has had appropriate feedings in the last 24 hours meets the outcomes for weight, output, blood sugar and jaundice at this time. Reinforced understanding of milk production, transition of milk, signs of adequate intake, transition of stool, prevention/relief of engorgement, plugged ducts, mastitis, responsive watching for feeding cues, the different methods of stimulating to breastfeed 1-3 hours after the start of the last feeding, community resources, and when to call a provider using the resource of the feeding sheet along with the mom and baby guide. Mother voiced understanding of the information shared, is confident to continue effectively feed her at home, when to call for assistance, denies any additional assistance or education at this time. Mother does need [facility] Referral filled out. Reported to the Primary RN. [id number] [facility] Referral form faxed to [facility] office #[phone] and original placed on mother's chart.
[2025-01-29] MEDS: INFLUENZA VACCINE 45 MCG/0.5 ML SYRINGE IM (13:28)
[2025-01-29] MEDS: MEASLES,MUMPS,RUBELLA VACCINE 0.5 ML VIAL SUB-Q (13:29)
[2025-01-30 14:59] VITALS: BP 130/73; PULSE 76; RESP 18; TEMP 37.2; O2SAT 100
== END 2025-01-29 15:05 | disposition home or self-care (01) | DRG 807 ==
LOC: ANHLDR 01-27 13:02 → ANHOBPP 01-27 17:18 → ANHOB2 01-28 08:59
PROVIDERS: Admitting Provider Obstetrics & Gynecology; Visit Provider Student in an Organized Health Care Education/Training Program
DX: O13.4 Gestational [pregnancy-induced] hypertension without significant proteinuria, complicating childbirth (principal); Z37.0 Single live birth; Z3A.39 39 weeks gestation of pregnancy; O99.344 Other mental disorders complicating childbirth; O76 Abnormality in fetal heart rate and rhythm complicating labor and delivery; F41.9 Anxiety disorder, unspecified; O70.0 First degree perineal laceration during delivery; Z23 Encounter for immunization
CPT/HCPCS: 36415; 80053; 85014; 85018; 85025; 86593; 86850; 86900; 86901; 90471; 90656; 90710; A9270; G0008; J2590; J2795; J7120